=== PATIENT | male | born 1960 ===

== ENCOUNTER 2018-06-14 11:16 | Outpatient (CLI) | payer MEDICAID | END 2018-06-14 11:17 | disposition home or self-care (01) | LOC: C.RADH 11:16 ==

== ENCOUNTER 2018-06-22 09:33 | Inpatient (IN) | payer MEDICAID ==
[2018-06-22 09:34] VITALS: BMI 30.7
[2018-06-22] MEDS ORDERED: Albuterol-Ipratrop 3 mg / 0.5 (3 ml) UD ONE (09:53)
[2018-06-22] MEDS ORDERED: Albuterol-Ipratrop 3 mg / 0.5 (3 ml) UD INH STA (10:02)
[2018-06-22] MEDS ORDERED: Albuterol 0.083% Inhal Sol (2.5 mg/3 mL) UD IH STA ×2 (10:07)
[2018-06-22] MEDS ORDERED: Albuterol 0.083% Inhal Sol (2.5 mg/3 mL) UD ONE (10:14)
[2018-06-22 10:28] LABS: BASO % 0.2 % (0.0-2.0); EOS % 0.5 % (0.0-4.0); HEMOGLOBIN 15.6 g/dL (12.0-18.0); LYMPH # 1.2 K/uL (1.0-4.3); LYMPH % 13.4 % (20.0-40.0); MEAN CELL VOLUME 93.1 fL (80.0-94.0); MEAN CORPUSCULAR HEMOGLOBIN 31.8 pg (27.0-31.0); MEAN CORPUSCULAR HGB CONC 34.1 g/dL (33.0-37.0); MEAN PLATELET VOLUME 9.7 fL (7.2-11.7); MONO % 11.5 % (0.0-10.0); NEUT # 6.6 K/uL (1.8-7.0); NEUT % 74.4 % (50.0-75.0); RBC 4.9 Mil/uL (4.40-5.90); RED CELL DISTRIBUTION WIDTH 14.5 % (11.5-14.5); WHITE BLOOD COUNT 8.8 K/uL (4.8-10.8)
[2018-06-22 10:29] LABS: VENOUS BLOOD GAS BASE EXCESS 1.3 mmol/L (0.0-2.0); VENOUS BLOOD GAS PCO2 40 mmHg (40-60); VENOUS BLOOD GAS PO2 37 mm/Hg (30-55); VENOUS BLOOD PH 7.42 (7.32-7.43)
[2018-06-22 10:40] LABS: ALB/GLOB RATIO 1.6 (1.0-2.1); ALBUMIN 4.6 g/dL (3.5-5.0); ALT/SGPT 44 U/L (21-72); AST/SGOT 31 U/L (17-59); BLOOD UREA NITROGEN 14 mg/dL (9-20); CALCIUM 8.8 mg/dl (8.6-10.4); GFR NON-AFRICAN AMERICAN > 60
--- NOTE | 2018-06-22 11:17 | RAD ---
HISTORY: SOB COMPARISON: Chest x-ray performed 06/14/18 TECHNIQUE: Chest, one view. FINDINGS: Examination limited by habitus. LUNGS: Mild left lower lobe infiltrate. Please note that chest x-ray has limited sensitivity for the detection of pulmonary masses. PLEURA: No significant pleural effusion identified. No definite pneumothorax . CARDIOVASCULAR: Heart size appears within normal limits. Ectatic aorta. OSSEOUS STRUCTURES: Degenerative changes. VISUALIZED UPPER ABDOMEN: Unremarkable. OTHER FINDINGS: None. IMPRESSION: Mild left lower lobe infiltrate.
--- NOTE | 2018-06-22 11:29 | C.PDOC ---
History Of Present Illness Patient is a 58 year old male who presents to the ED complaining of SOB, wheezing, and a productive cough that has been present for four days. He notes associated fever and chills. Patient was seen by his PMD who started him on Amoxicillin and Medrol, but patient states no improvement in symptoms. He denies any CP, palpitations, abdominal pain, nausea, vomiting, or diarrhea. Time Seen by Provider: 06/22/18 09:38 Chief Complaint (Nursing): Shortness Of Breath History Per: Patient History/Exam Limitations: no limitations Onset/Duration Of Symptoms: Hrs (4 ) Current Symptoms Are (Timing): Still Present Associated Symptoms: Fever, Chills, Productive Cough, Other (wheezing ). denies: Chest Pain Recent travel outside of the [place]: No Additional History Per: Patient Past Medical History Reviewed: Historical Data, Nursing Documentation, Vital Signs Vital Signs: Last Vital Signs Temp 100.7 F H 06/22/18 10:05 Pulse 113 H 06/22/18 10:56 Resp 22 06/22/18 10:56 BP 121/71 06/22/18 10:56 Pulse Ox 98 06/22/18 10:56 - Medical History PMH: Asthma Denies: Colonic Polyps, Chronic Kidney Disease Surgical History: No Surg Hx - [facility] Procedures TENDON GRAFT (11/22/14) TOT OSTECT-METATARS/TARS (11/22/14) Family History: States: Unknown Family Hx - Social History Hx Alcohol Use: Yes Hx Substance Use: No Review Of Systems Constitutional: Positive for: Fever, Chills Cardiovascular: Negative for: Chest Pain, Palpitations Respiratory: Positive for: Cough (productive ), Shortness of Breath, Wheezing Gastrointestinal: Negative for: Nausea, Vomiting, Abdominal Pain, Diarrhea Physical Exam - Physical Exam Appears: Well, No Acute Distress Cardiovascular: No Rhythm Regular (tachycardia ) Respiratory: No Accessory Muscle Use, No Rales, No Rhonchi, Wheezing (expiratory bilateral ), Other (occasional cough ) Gastrointestinal/Abdominal: Soft, No Tenderness, No Guarding, No Rebound Extremity: No Pedal Edema Neurological/Psych: Oriented x3, Normal Speech (able to speak in full sentences ) ED Course And Treatment - Laboratory Results Result Diagrams: 06/22/18 10:19 06/22/18 10:19 Lab Results: pO2 37 mm/Hg (30-55) 06/22/18 10:26 VBG pH 7.42 (7.32-7.43) 06/22/18 10:26 VBG pCO2 40 mmHg (40-60) 06/22/18 10:26 VBG HCO3 25.2 mmol/L 06/22/18 10:26 VBG Total CO2 27.1 mmol/L (22-28) 06/22/18 10:26 VBG O2 Sat (Calc) 77.1 % (40-65) H 06/22/18 10:26 VBG Base Excess 1.3 mmol/L (0.0-2.0) 06/22/18 10:26 VBG Potassium 3.2 mmol/L (3.6-5.2) L 06/22/18 10:26 Sodium 137.0 mmol/l (132-148) 06/22/18 10: Chloride 103.0 mmol/L (98-107) 06/22/18 10: Glucose 102 mg/dl (75-110) 06/22/18 10: Lactate 2.7 mmol/L (0.7-2.1) H 06/22/18 10:26 Troponin I < 0.0120 ng/mL (0.00-0.120) 06/22/18 10: NT-Pro-B Natriuret Pep 95.0 pg/mL (0-900) 06/22/18 10: Total Bilirubin 0.4 mg/dL (0.2-1.3) 06/22/18 10: AST 31 U/L (17-59) 06/22/18 10: ALT 44 U/L (21-72) 06/22/18 10:19 Alkaline Phosphatase 87 U/L (38-126) 06/22/18 10:19 Total Protein 7.4 g/dL (6.3-8.3) 06/22/18 10:19 Albumin 4.6 g/dL (3.5-5.0) 06/22/18 10:19 Globulin 2.8 gm/dL (2.2-3.9) 06/22/18 10:19 Albumin/Globulin Ratio 1.6 (1.0-2.1) 06/22/18 10:19 ECG: Interpreted By Me, Viewed By Me ECG Rhythm: Sinus Tachycardia Interpretation Of ECG: normal axis, no ST/T wave changes Rate From EC O2 Sat by Pulse Oximetry: 98 (on RA) Pulse Ox Interpretation: Normal - Other Rad CXR X-Ray: Viewed By Me, Read By Radiologist Interpretation: FINDINGS: Examination limited by habitus. LUNGS: Mild left lower lobe infiltrate. Please note that chest x-ray has limited sensitivity for the detection of pulmonary masses. PLEURA: No significant pleural effusion identified. No definite pneumothorax . CARDIOVASCULAR: Heart size appears within normal limits. Ectatic aorta. OSSEOUS STRUCTURES: Degenerative changes. VISUALIZED UPPER ABDOMEN: Unremarkable. OTHER FINDINGS: None. IMPRESSION: Mild left lower lobe infiltrate. Progress Note: VBG, EKG, Bloodwork, CXR, Blood Culture, Serology were ordered. Tylenol 975mg PO, Albuterol 2.5mg/3ml UD, Duoneb 3mg/ 0.5mg UD, Zithromax 500mg IVPB, Ceftriaxone IVPB, Solu-Medrol 125mg IVP, Tamiflu 75mg PO, and a Nebulizer were administered. 1125 Serology was positive for influenza. Will consult with Dr. Banuelos. Disposition - Disposition - Scribe Statement The provider has reviewed the documentation as recorded by the Jgibliang Hayes All medical record entries made by the Scribe were at my direction and personally dictated by me. I have reviewed the chart and agree that the record accurately reflects my personal performance of the history, physical exam, medical decision making, and the department course for this patient. I have also personally directed, reviewed, and agree with the discharge instructions and disposition.
[2018-06-22] MEDS ORDERED: cefTRIAXone IV 1 gm in Dextros 50 ML IV ONE (11:33)
[2018-06-22] MEDS ORDERED: Azithromycin 500 MG in Sodium Chloride 0.9% 250 ML IVPB STA (11:34)
[2018-06-22] MEDS ORDERED: Azithromycin 500mg/250ML NS 500 MG/250 ML BAG IVPB ONE (11:48)
--- NOTE | 2018-06-22 14:58 | CP.PCM.HP ---
History of Present Illness - History of Present Illness History of Present Illness: Chief complaint: Worsening shortness of breath, cough, and wheezing. 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 Also had a history of intracranial bleeding in April 2014, hypertension, came to the emergency room with worsening symptoms of cough. Patient was seen by me in the office, multiple antibiotic was given at least in 2 weeks, also Medrol pack. He received a chest x-ray, negative at the time. But he started having worsening cough. Worsening shortness of breath. Cough with thick yellow mucus production. Chills. Shortness of breath. Not able to walk. Patient is having the symptoms for almost 1 week now gradually getting worse, yesterday he was having increasing symptoms. Patient called my office, and at the time I advised him to go to the emergency room yesterday, but he came to the ER today. Past medical history: Hypertension, extensive bronchial asthma, chronic corticosteroid use, left heel pain, with a tendon injury, likely secondary to quinolones used in the past, history of fall, intracranial bleeding in the past in 2013. Surgical history includes calcaneal tendon repair Allergies no known drug allergy, but the patient is allergic to pork Personal history: Patient smokes few cigarettes per day. Sometimes. No drug abuse. Drinks coffee daily He denies any alcohol but except socially Nonalcoholic. He is working full-time now Family history noncontributory Brother had a history of diabetes. Sister also has a history of diabetes. Father at the age of 85 natural cause Mother had a history of asthma and hypertension Current medications: Augmentin Ventolin HFA Singular 10 mg daily Dulera Hydrochlorothiazide Nasonex Ghazala Medrol Harsha Prednisone Crestor Ibuprofen Review of system: Complaining of headache, body pain, generalized weakness. Not eating well. Poor appetite. Increasing cough. Cough with mucus production. Thick yellow mucus noted On examination: Vital signs: Low-grade fever noted. Mild tachycardia. Chest good air entry, but expiratory wheezing diffusely noted. Regular heart sounds noted Abdomen soft. Nontender. Patient's labs reviewed Nonspecific. Chest x-ray showing evidence of left lower lung atelectatic, versus pneumonia noted. Mild elevation of the lactate level noted. patient is positive for influenza type. Assessment and recommendation: 58-year-old male with a history of bronchial asthma, steroid dependent,With the quinolone-induced tendinopathy , Rhinitis, allergic rhinitis. Hyper IgE. Patient admitted to the hospital with acute pneumonia. Acute influenza. Also acute exacerbation of bronchial asthma. Patient has a complex disorder at this time. We will start the patient on Tamiflu twice a day Also start the patient on Rocephin and Zithromax IV Corticosteroid Bronchodilators. DVT and GI prophylaxis. We will do a CAT scan tomorrow. Underlying fungal disease cannot be ruled out. And will follow the patient. Present on Admission - Present on Admission Any Indicators Present on Admission: No History of DVT/PE: No History of Uncontrolled Diabetes: No Urinary Catheter: No Decubitus Ulcer Present: No Past Patient History - Past Medical History & Family History Past Medical History?: Yes - Past Social History Smoking Status: Light Smoker < 10 Cigarettes Daily - CARDIAC Hx Cardiac Disorders: No - PULMONARY Hx Respiratory Disorders: Yes Hx Asthma: Yes - NEUROLOGICAL Hx Neurological Disorder: Yes Other/Comment: TBI 2 years ago - HEENT Hx HEENT Problems: No - RENAL Hx Chronic Kidney Disease: No - ENDOCRINE/METABOLIC Hx Endocrine Disorders: No - HEMATOLOGICAL/ONCOLOGICAL Hx Blood Disorders: No - INTEGUMENTARY Hx Dermatological Problems: Yes Other/Comment: RASH ON BOTH SIDES OF FACE AND NECK FOR TWO YEARS NOW. AREAS ARE NOT REDDENED; ONLY SHOWING SMALL ROUND SCARS. NO OPEN LESIONS NOTED. - MUSCULOSKELETAL/RHEUMATOLOGICAL Hx Musculoskeletal Disorders: No Hx Falls: No - GASTROINTESTINAL Hx Gastrointestinal Disorders: Yes Hx Hemorrhoids: Yes Other/Comment: CLAIMS HE HAS + H. PYLORII IN BLOOD. - GENITOURINARY/GYNECOLOGICAL Hx Genitourinary Disorders: No - PSYCHIATRIC Hx Psychophysiologic Disorder: No Hx Substance Use: No - SURGICAL HISTORY Hx Surgeries: Yes Hx Herniorrhaphy: Yes (umbilical ) Hx Orthopedic Surgery: Yes (LEFT FOOT TENDON REPAIR.) Other/Comment: KIDNEY STONE EXTRACTION 30 YRS AGO. HEEL SPUR - ANESTHESIA Hx Anesthesia: Yes Hx Anesthesia Reactions: No Hx Malignant Hyperthermia: No Meds Allergies/Adverse Reactions: Allergies Allergy/AdvReac Type Severity Reaction Status Date / Time grass pollen Allergy Intermediate RASH Verified 06/22/18 13:26 PORK Allergy Intermediate RASH Verified 06/22/18 13:26 SEAFOOD Allergy Intermediate RASH Uncoded 06/22/18 13:26 Results - Vital Signs Recent Vital Signs: Last Vital Signs Temp 100.7 F H 06/22/18 10:05 Pulse 75 06/22/18 13:24 Resp 14 06/22/18 14:22 BP 123/76 06/22/18 13:24 Pulse Ox 96 06/22/18 14:22 - Labs Result Diagrams: 06/22/18 10:19 06/22/18 10:19 Labs: Laboratory Results - last 24 hr 06/22/18 06/22/18 06/22/18 10:19 10:19 10:19 WBC 8.8 RBC 4.90 Hgb 15.6 Hct 45.6 MCV 93.1 MCH 31.8 H MCHC 34.1 RDW 14.5 Plt Count 222 MPV 9.7 Neut % (Auto) 74.4 Lymph % (Auto) 13.4 L [place] % (Auto) 11.5 H Eos % (Auto) 0.5 Baso % (Auto) 0.2 Neut # (Auto) 6.6 Lymph # (Auto) 1.2 [place] # (Auto) 1.0 H Eos # (Auto) 0.0 Baso # (Auto) 0.0 pO2 VBG pH VBG pCO2 VBG HCO3 VBG Total CO2 VBG O2 Sat (Calc) VBG Base Excess VBG Potassium Glucose Lactate Sodium 138 Potassium 3.6 Chloride 102 Carbon Dioxide 26 Anion Gap 14 BUN 14 Creatinine 0.8 Est GFR ( Amer) > 60 Est GFR (Non-Af Amer) > 60 Random Glucose 114 H Calcium 8.8 Total Bilirubin 0.4 AST 31 ALT 44 Alkaline Phosphatase 87 Troponin I < 0.0120 NT-Pro-B Natriuret Pep 95.0 Total Protein 7.4 Albumin 4.6 Globulin 2.8 Albumin/Globulin Ratio 1.6 Venous Blood Potassium Influenza Typ A,B (EIA) Pos for influenza a H 06/22/18 10:26 WBC RBC Hgb Hct MCV MCH MCHC RDW Plt Count MPV Neut % (Auto) Lymph % (Auto) [place] % (Auto) Eos % (Auto) Baso % (Auto) Neut # (Auto) Lymph # (Auto) [place] # (Auto) Eos # (Auto) Baso # (Auto) pO2 37 VBG pH 7.42 VBG pCO2 40 VBG HCO3 25.2 VBG Total CO2 27.1 VBG O2 Sat (Calc) 77.1 H VBG Base Excess 1.3 VBG Potassium 3.2 L Glucose 102 Lactate 2.7 H Sodium 137.0 Potassium Chloride 103.0 Carbon Dioxide Anion Gap BUN Creatinine Est GFR ( Amer) Est GFR (Non-Af Amer) Random Glucose Calcium Total Bilirubin AST ALT Alkaline Phosphatase Troponin I NT-Pro-B Natriuret Pep Total Protein Albumin Globulin Albumin/Globulin Ratio Venous Blood Potassium 3.2 L Influenza Typ A,B (EIA)
[2018-06-22] MEDS: MethylPREDNISolone 40 mg Vial IVP SCH (22:31)
[2018-06-22] MEDS: Albuterol-Ipratrop 3 mg / 0.5 (3 ml) UD INH SCH (22:33)
[2018-06-23] MEDS: Albuterol-Ipratrop 3 mg / 0.5 (3 ml) UD INH SCH ×4 (01:22→20:42)
[2018-06-23] MEDS: Fluticasone-Vilanterol 200/25mcg Diskus INH SCH (07:54)
[2018-06-23 08:07] LABS: BASO % 0.1 % (0.0-2.0); LYMPH # 0.6 K/uL (1.0-4.3); LYMPH % 6.6 % (20.0-40.0); MEAN CORPUSCULAR HEMOGLOBIN 31.6 pg (27.0-31.0); MEAN CORPUSCULAR HGB CONC 33.6 g/dL (33.0-37.0); MEAN PLATELET VOLUME 9.6 fL (7.2-11.7); MONO # 0.7 K/uL (0.0-0.8); MONO % 7.9 % (0.0-10.0); NEUT # 7.3 K/uL (1.8-7.0); NEUT % 85.4 % (50.0-75.0); PLATELET COUNT 211 K/uL (130-400); RBC 4.42 Mil/uL (4.40-5.90); WHITE BLOOD COUNT 8.6 K/uL (4.8-10.8)
[2018-06-23 08:26] LABS: ALB/GLOB RATIO 1.5 (1.0-2.1); ALBUMIN 3.8 g/dL (3.5-5.0); ALT/SGPT 38 U/L (21-72); AST/SGOT 29 U/L (17-59); BLOOD UREA NITROGEN 19 mg/dL (9-20); CALCIUM 8.4 mg/dl (8.6-10.4); GFR NON-AFRICAN AMERICAN > 60
[2018-06-23 08:59] LABS: LYMPHOCYTE 10 % (20-40); MONOCYTE 6 % (0-10); NEUTROPHIL 84 % (50-75); PLATELET ESTIMATE NORMAL (NORMAL); TOTAL CELLS COUNTED 100
[2018-06-23] MEDS: cefTRIAXone IV 1 gm in Dextros 50 ML IVPB SCH (10:00)
[2018-06-23] MEDS: Nystatin 100,000 Units/ml Oral Susp 5 ml UD PO SCH ×2 (10:03→14:04)
[2018-06-23] MEDS: MethylPREDNISolone 40 mg Vial IVP SCH ×2 (10:30→21:26)
[2018-06-23] MEDS: Azithromycin 500 MG in Sodium Chloride 0.9% 250 ML IVPB SCH (10:33)
--- NOTE | 2018-06-23 10:59 | CT ---
Date of service: 06/23/2018 CT chest without IV contrast Indication: pna Technique: Contiguous axial images were obtained through the chest without intravenous contrast enhancement. Sagittal and coronal reconstructions were generated and reviewed. This CT exam was performed using 1 or more of the following dose reduction techniques: Automated exposure control, adjustment of the MAA and/or kV according to patient size, and/or use of iterative reconstruction technique. Radiation dose (DLP): 865.84 MGy-cm. Comparison: Chest x-ray performed 06/22/18 Findings: Visualized portions of the inferior thyroid gland appear unremarkable. The mediastinal and hilar vascular structures appear within normal limits. The heart appears within normal limits of size. Sub cm mediastinal lymph nodes, nonspecific. Mild bronchiectasis. 8 x 12 mm lobulated nodule within the medial right lower lobe (series 3, image 73). Mild ground-glass nodular opacities in the left lower lobe and associated ground-glass infiltrate. 2 mm right lower lobe calcified granuloma. No pleural effusion. No pneumothorax. Small hiatal hernia/distal esophageal wall thickening. Limited visualization of the noncontrast upper abdomen appears grossly unremarkable. Degenerative changes of the spine. Impression: Sub cm mediastinal lymph nodes, nonspecific. Mild bronchiectatic changes with upper lobe predominance. Mild ground-glass nodular opacities in the left lower lobe and associated ground-glass infiltrate; appearance suspected secondary to pneumonia. Recommend repeat CT upon completion of treatment of acute symptoms in order to assess for complete resolution. 8 x 12 mm lobulated pulmonary nodule within the medial right lower lobe. If indicated, further evaluation suggested with PET-CT, tissue sampling, or short interval follow-up (3-6 months and 18-24 months). 2 mm right lower lobe calcified granuloma.
--- NOTE | 2018-06-23 23:16 | CP.PCM.PN ---
Subjective - Date & Time of Evaluation Date of Evaluation: 06/23/18 Time of Evaluation: 23:14 - Subjective Subjective: Patient this morning was having some wheezing, coughing. Shortness of breath. No fever noted. Poor appetite. Weakness present. On examination: Vital signs stable. Chest bilateral wheezing noted Regular hs Nontender abdomen. 1+ pedal edema Labs reviewed IgE level is currently pending Assessment and recommendation: 58-year-old male admitted to the hospital with acute influenza. Currently on Tamiflu. Acute bronchitis. Underlying pneumonia possible. On intravenous antibiotic DVT and GI prophylaxis. Overall prognosis guarded. We will continue the steroid. Cultures are pending Objective - Vital Signs/Intake and Output Vital Signs (last 24 hours): Temp Pulse Resp BP Pulse Ox 97.9 F 67 20 159/82 H 94 L 06/23/18 15:00 06/23/18 16:00 06/23/18 15:00 06/23/18 15:00 06/23/18 15:00 - Medications Medications: Current Medications Albuterol/Ipratropium (Duoneb 3 Mg/0.5 Mg (3 Ml) Ud) 3 ml INH RQ6 [facility] Last Admin: 06/23/18 20:42 Dose: 3 ml Clotrimazole (Mycelex [place]) 10 mg MT 5XD [facility] Stop: 07/07/18 17:01 Last Admin: 06/23/18 21:28 Dose: 10 mg Fluticasone/Vilanterol (Breo Ellipta 200-25 Mcg Inh) 1 puff INH RQD [facility] Last Admin: 06/23/18 07:54 Dose: Not Given Heparin Sodium (Porcine) (Heparin) 5,000 units SC Q8 [facility] Last Admin: 06/23/18 21:26 Dose: 5,000 units Azithromycin 500 mg/ Sodium (Chloride) 250 mls @ 250 mls/hr IVPB DAILY@1030 [facility]; Protocol Last Admin: 06/23/18 10:33 Dose: 250 mls/hr Ceftriaxone Sodium (Rocephin Iv 1 Gm Duplex) 50 mls @ 100 mls/hr IVPB DAILY [facility]; Protocol Last Admin: 06/23/18 10:00 Dose: 100 mls/hr Influenza Virus Vaccine (Flucelvax Quad [id number] Syr) 60 mcg IM .ONCE ONE Stop: 06/24/18 14:01 Loratadine (Claritin) 10 mg PO DAILY [facility] Last Admin: 06/23/18 10:30 Dose: 10 mg Methylprednisolone (Solu-Medrol) 40 mg IVP Q12 [facility] Last Admin: 06/23/18 21:26 Dose: 40 mg Montelukast Sodium (Singulair) 10 mg PO HS [facility] Last Admin: 06/23/18 21:26 Dose: 10 mg Oseltamivir Phosphate (Tamiflu Cap) 75 mg PO BID [facility]; Protocol Stop: 06/27/18 21:59 Last Admin: 06/23/18 17:38 Dose: 75 mg Pantoprazole Sodium (Protonix Inj) 40 mg IVP DAILY [facility] Last Admin: 06/23/18 10:30 Dose: 40 mg Pneumococcal Polyvalent Vaccine (Pneumovax 23 Vaccine) 0.5 ml IM .ONCE ONE Stop: 06/24/18 14:01 - Labs Labs: 06/23/18 07:57 06/23/18 07:57
[2018-06-24] MEDS: Albuterol-Ipratrop 3 mg / 0.5 (3 ml) UD INH SCH ×4 (01:47→20:28)
--- NOTE | 2018-06-24 05:57 | CARD ---
APPROVED REPORT Date of service: 06/22/2018 EKG Measurement Heart [id number] <Conclusion> Sinus tachycardia Otherwise normal ECG
[2018-06-24] MEDS: cefTRIAXone IV 1 gm in Dextros 50 ML IVPB SCH (09:25)
[2018-06-24] MEDS: Azithromycin 500 MG in Sodium Chloride 0.9% 250 ML IVPB SCH (10:42)
[2018-06-24] MEDS: MethylPREDNISolone 40 mg Vial IVP SCH ×2 (10:42→21:55)
[2018-06-24] MEDS: Fluticasone-Vilanterol 200/25mcg Diskus INH SCH (13:21)
[2018-06-24] MEDS ORDERED: Pneumococcal 23-Valent Vaccine IM ONE (14:00)
[2018-06-24] MEDS ORDERED: Influenza Vaccine 60 mcg/0.5 mL SYR (4YR UP) IM ONE (14:00)
[2018-06-25] MEDS: Albuterol-Ipratrop 3 mg / 0.5 (3 ml) UD INH SCH ×4 (01:06→21:23)
[2018-06-25 01:25] VITALS: RESP 20
[2018-06-25] MEDS: Fluticasone-Vilanterol 200/25mcg Diskus INH SCH (07:30)
[2018-06-25] MEDS: MethylPREDNISolone 40 mg Vial IVP SCH ×2 (10:10→21:34)
[2018-06-25] MEDS: cefTRIAXone IV 1 gm in Dextros 50 ML IVPB SCH (10:10)
[2018-06-25] MEDS: Azithromycin 500 MG in Sodium Chloride 0.9% 250 ML IVPB SCH (11:26)
[2018-06-26] MEDS: Albuterol-Ipratrop 3 mg / 0.5 (3 ml) UD INH SCH ×2 (01:57→07:40)
[2018-06-26] MEDS: Fluticasone-Vilanterol 200/25mcg Diskus INH SCH (07:40)
[2018-06-26 08:09] VITALS: BP 160/86; PULSE 70; TEMP 97.3; O2SAT 96
[2018-06-26] MEDS: MethylPREDNISolone 40 mg Vial IVP SCH (09:12)
[2018-06-26] MEDS: cefTRIAXone IV 1 gm in Dextros 50 ML IVPB SCH (09:13)
[2018-06-26] MEDS: Azithromycin 500 MG in Sodium Chloride 0.9% 250 ML IVPB SCH (10:08)
== END 2018-06-26 12:11 | disposition home or self-care (01) | DRG 90 ==
LOC: C.ER 09:33 → C.9E 11:43 → C.5S 19:45
PROVIDERS: ADMIT Internal Medicine; ATTEND Internal Medicine
DX: J11.00 Influenza due to unidentified influenza virus with unspecified type of pneumonia (principal); J18.9 Pneumonia, unspecified organism; J45.901 Unspecified asthma with (acute) exacerbation; J31.0 Chronic rhinitis; J30.9 Allergic rhinitis, unspecified; I10 Essential (primary) hypertension; F17.210 Nicotine dependence, cigarettes, uncomplicated; Z79.52 Long term (current) use of systemic steroids; Z86.73 Personal history of transient ischemic attack (TIA), and cerebral infarction without residual deficits; Z87.442 Personal history of urinary calculi; Z82.49 Family history of ischemic heart disease and other diseases of the circulatory system; Z82.5 Family history of asthma and other chronic lower respiratory diseases; Z83.3 Family history of diabetes mellitus